=== PATIENT | female | born 1995 | race Caucasian/White ===

== ENCOUNTER 2018-09-15 17:15 | Emergency (ER) | payer BC, MEDICAID ==
[2018-09-15] MEDS ORDERED: LORazepam 0.5 MG Tab PO ONE (18:28)
--- NOTE | 2018-09-15 18:36 | EDM.PDOCBH ---
ED HPI GENERAL MEDICAL PROBLEM - General Chief Complaint: Behavioral/Psych Stated Complaint: SUICIDAL IDEATIONS Time Seen by Provider: 09/15/18 17:38 Source of Information: Reports: Patient, RN Notes Reviewed History Limitations: Reports: No Limitations - History of Present Illness INITIAL COMMENTS - FREE TEXT/NARRATIVE: Patient is a 22-year-old female who presents to the ED for the evaluation of emotional distress. She notes that she has a history of borderline personality disorder. She states that she can go from 0-100 in no time flat. She does that recently she's been feeling mad, angry, sad, impulsive, and destructive. When she gets like this she can't control herself and will punch calabrese and break things. She states that she can't remember how long she's been this way but she states that she has been this way for a really long time. She notes that she has taken medications since she was around 7 years old for this but is not currently medicated. She used to live in [place] and was seeing a psychiatrist there however she has moved to [place] and is getting set up with [facility] and has an appointment on [address] brown. She notes that she has been going to her therapist and counseling sessions through [facility]. But she states that she feels she needs to be medicated sooner rather than later. She states that she has taken Zoloft, buspirone, and Lamictal safely in the past. She states that today she has increased anxiety. She notes that she does have suicidal thoughts from time to time but does not have a plan for this and attributed these to the variations in her mood. She notes that she does smoke cigarettes and does smoke marijuana from time to time as well. Chest Pain Score (Numeric/FACES): 6 - Related Data Allergies Allergy/AdvReac Type Severity Reaction Status Date / Time Penicillins Allergy Rash Verified 09/15/18 17:32 Home Meds: Home Meds Sertraline [Zoloft] 50 mg PO BEDTIME #10 tab 09/15/18 [Rx] busPIRone HCl [Buspirone HCl] 7.5 mg PO BID #20 tablet 09/15/18 [Rx] Past Medical History Psychiatric History: Reports: Anxiety, Bipolar, Depression, PTSD, Suicide Attempt - Infectious Disease History Infectious Disease History: Reports: Chicken Pox Social & Family History - Family History Family Medical History: Noncontributory - Tobacco Use Smoking Status *Q: Current Every Day Smoker Years of Tobacco use: 4 Packs/Tins Daily: 0.2 Used Tobacco, but Quit: Yes Month/Year Tobacco Last Used: 07/2018 - Caffeine Use Caffeine Use: Reports: Coffee - Recreational Drug Use Recreational Drug Use: Yes Drug Use in Last 12 Months: Yes Recreational Drug Type: Reports: Marijuana/Hashish Recreational Drug Use Frequency: Daily ED ROS GENERAL - Review of Systems Review Of Systems: See Below Constitutional: Reports: No Symptoms HEENT: Reports: No Symptoms Respiratory: Reports: No Symptoms Cardiovascular: Reports: No Symptoms Endocrine: Reports: No Symptoms GI/Abdominal: Reports: No Symptoms : Reports: No Symptoms Musculoskeletal: Reports: No Symptoms Skin: Reports: No Symptoms Neurological: Reports: No Symptoms Psychiatric: Reports: Agitation, Anxiety, Mood Lability, Suicidal Ideation. Denies: Depression, Hallucinations, Homicidal Ideation Hematologic/Lymphatic: Reports: No Symptoms Immunologic: Reports: No Symptoms ED EXAM, BEHAVIORAL HEALTH - Physical Exam Exam: See Below Exam Limited By: No Limitations General Appearance: Alert, WD/WN, No Apparent Distress Eye Exam: Bilateral Eye: EOMI, Normal Inspection, PERRL Ears: Normal External Exam, Normal TMs Nose: Normal Inspection Throat/Mouth: Normal Inspection, Normal Teeth, Normal Oropharynx, No Airway Compromise Head: Atraumatic, Normocephalic Neck: Normal Inspection Respiratory/Chest: No Respiratory Distress, Lungs Clear, Normal Breath Sounds, No Accessory Muscle Use, Chest Non-Tender Cardiovascular: Normal Peripheral Pulses, Regular Rate, Rhythm, No Murmur GI/Abdominal: Normal Bowel Sounds, Soft, Non-Tender, No Distention, No Mass Extremities: Normal Inspection, Normal Capillary Refill Neurological: Alert, Normal Gait, Normal Reflexes, No Motor/Sensory Deficits, Oriented x 3 Psychiatric: Alert, Oriented, Restless, Tearful, Agitated, Flight of Ideas, Suicidal Thoughts. No: Homicidal Thoughts, Phobic, Catholic Delusions, Suicidal Plan, Tangential Thoughts, Auditory Hallucinations, Visual Hallucinations, Grandiose Thoughts, Paranoid Thoughts Skin Exam: Warm, Dry, Intact, Normal color, No rash COURSE, BEHAVIORAL HEALTH COMP - Course Vital Signs: Last Vital Signs Temp Pulse 92 09/15/18 17:28 Resp 20 09/15/18 17:28 BP 112/77 09/15/18 17:28 Pulse Ox 98 09/15/18 17:28 Orders, Labs, Meds: Medications Discontinued Medications Generic Name Dose Route Start Last Admin Trade Name Taylor PRAdriana Reason Stop Dose Admin Buspirone HCl 5 mg 09/15/18 18:40 09/15/18 18:50 Buspar PO 09/15/18 18:41 5 mg ONETIME ONE Administration Lorazepam 0.5 mg 09/15/18 18:28 09/15/18 18:38 Ativan PO 09/15/18 18:29 0.5 mg ONETIME ONE Administration Sertraline HCl 50 mg 09/15/18 18:40 09/15/18 18:50 Zoloft PO 09/15/18 18:41 50 mg ONETIME ONE Administration Discharge vs Psych Eval/Treatment:: 09/15/18 18:42 Patient presents to the ED for the evaluation of emotional feelings. I do not believe she is suicidal at this time, she is needing some medications to stabilize her moods until she can get to her psychiatric appointment with Dr. Brown on September 25, 2018. I have given her 0.5 g Ativan in the ER for initial relief but have sent her home with one tablet Zoloft for tonight and 1 tab of buspirone for tonight as well. I have sent her a prescription for 10 days worth of the Zoloft and buspirone so that she may be able to attend her primary Dr. Brown. Patient is amenable to this plan and wishes to be discharged home. Departure - Departure Time of Disposition: 18:44 Disposition: Home, Self-Care 01 Condition: Fair Clinical Impression: Anxiety, Personality disorder in adult - Discharge Information *PRESCRIPTION DRUG MONITORING PROGRAM REVIEWED*: No *COPY OF PRESCRIPTION DRUG MONITORING REPORT IN PATIENT WOODY: No Prescriptions: busPIRone HCl [Buspirone HCl] 7.5 mg PO BID #20 tablet Sertraline [Zoloft] 50 mg PO BEDTIME #10 tab Instructions: Living With Borderline Personality Disorder Referrals: PCP,Not In Area [Primary Care Provider] - Forms: ED Department Discharge Additional Instructions: You have been evaluated in the ED today for your emotional feelings. You have been given 0.5 mg Ativan at this ED visit, and one tablet Zoloft and 1 tab abuse from to take tonight. You have been prescribed a 10 day supply of Zoloft and a 10 day supply of buspirone so that you may be able to get to your appointment with Dr. Brown on September 25, 2018. These have been electronically prescribed to the [facility] pharmacy located near [facility]. Please continue to attend your [facility] counseling session/group therapy sessions. Please return to the ED if your symptoms should change or worsen.
[2018-09-15] MEDS ORDERED: Sertraline 50 MG Tab PO ONE (18:40)
[2018-09-15] MEDS ORDERED: busPIRone 5 MG Tab PO ONE (18:40)
== END 2018-09-15 18:51 | disposition home or self-care (01) ==
LOC: JD.ED 17:15
DX: F41.9 Anxiety disorder, unspecified (principal); F60.9 Personality disorder, unspecified; F17.210 Nicotine dependence, cigarettes, uncomplicated; Z88.0 Allergy status to penicillin
CPT/HCPCS: 99284; A9270

== ENCOUNTER 2020-12-01 06:35 | Emergency (ER) | payer MEDICAID ==
--- NOTE | 2020-12-01 07:05 | EDM.PDOC ---
ED HPI GENERAL MEDICAL PROBLEM - General Chief Complaint: Abdominal Pain Stated Complaint: ABDOMINAL PAIN/NAUSEA Time Seen by Provider: 12/01/20 07:04 - History of Present Illness INITIAL COMMENTS - FREE TEXT/NARRATIVE: 25-year-old female presents to the emergency room with diarrhea and abdominal pain. This pain started this morning she said 3 or 4 watery loose stools and that she has quite a bit of cramping in her lower abdomen. She is not had any nausea or vomiting. She is not aware of any fevers or chills. When she went to bed last night everything was normal. She denies she has an IUD in place. Shortly after arrival the patient did develop some nausea and vomiting here in the emergency room now she has dry heaves. Abdomen Pain Score (Numeric/FACES): 8 - Related Data Allergies Allergy/AdvReac Type Severity Reaction Status Date / Time Penicillins Allergy Rash Verified 12/01/20 06:46 Home Meds: Home Meds Hyoscyamine Sulfate [Levsin-Sl] 0.125 mg SL Q3H PRN #20 tab.subl 12/01/20 [Rx] Ondansetron [Zofran ODT] 4 mg PO Q6H PRN #10 tab.dis 12/01/20 [Rx] Sertraline [Zoloft] 100 mg PO BEDTIME 12/01/20 [History] Past Medical History - Past Health History Medical/Surgical History: Denies Medical/Surgical History Psychiatric History: Reports: Anxiety, Bipolar, Depression, PTSD, Suicide Attempt - Infectious Disease History Infectious Disease History: Reports: Chicken Pox Social & Family History - Family History Family Medical History: No Pertinent Family History - Tobacco Use Tobacco Use Status *Q: Current Every Day Tobacco User Years of Tobacco use: 7 Packs/Tins Daily: 0.5 - Caffeine Use Caffeine Use: Reports: Coffee, Soda - Recreational Drug Use Recreational Drug Use: Yes Recreational Drug Use Frequency: Socially ED ROS GENERAL - Review of Systems Review Of Systems: See Below Constitutional: Reports: No Symptoms, Weight Gain HEENT: Reports: Vertigo Cardiovascular: Reports: No Symptoms GI/Abdominal: Reports: Abdominal Pain, Diarrhea, Nausea, Vomiting : Reports: No Symptoms Musculoskeletal: Reports: No Symptoms Skin: Reports: No Symptoms Neurological: Reports: No Symptoms ED EXAM, GENERAL - Physical Exam Exam: See Below Exam Limited By: No Limitations General Appearance: Alert, No Apparent Distress Head: Atraumatic, Normocephalic Neck: Normal Inspection, Supple, Non-Tender, Full Range of Motion Respiratory/Chest: No Respiratory Distress, Lungs Clear, Normal Breath Sounds Cardiovascular: Regular Rate, Rhythm, No Edema, No Murmur GI/Abdominal: Normal Bowel Sounds, Soft, Other (Use tenderness lower abdomen no rigidity rebound or guarding) Back Exam: Normal Inspection. No: CVA Tenderness (L), CVA Tenderness (R) Neurological: Alert, Oriented, Normal Cognition Course - Vital Signs Last Recorded V/S: Last Vital Signs Temp 36.4 C 12/01/20 06:44 Pulse 98 12/01/20 06:44 Resp 18 12/01/20 06:44 BP 130/77 12/01/20 06:44 Pulse Ox 98 12/01/20 06:44 - Orders/Labs/Meds Orders: Active Orders 24 hr Category Date Time Status Lactated Ringers [Ringers, Lactated] 1,000 ml Med 12/01/20 08:00 Active IV ASDIRECTED Medication Orders Lactated Ringer's (Ringers, Lactated) 1,000 mls @ 150 mls/hr IV ASDIRECTED TERESA Labs: Laboratory Tests 12/01/20 12/01/20 12/01/20 Range/Units 06:57 06:57 07:55 WBC 17.12 H (3.98-10.04) K/mm3 RBC 4.72 (3.98-5.22) M/mm3 Hgb 14.8 (11.2-15.7) gm/dl Hct 43.0 (34.1-44.9) % MCV 91.1 (79.4-94.8) fl MCH 31.4 (25.6-32.2) pg MCHC 34.4 (32.2-35.5) g/dl RDW Std Deviation 43.8 (36.4-46.3) fL Plt Count 391 H (182-369) K/mm3 MPV 8.1 L (9.4-12.3) fl Neut % (Auto) 77.6 H (34.0-71.1) % Lymph % (Auto) 17.3 L (19.3-51.7) % Baxter % (Auto) 4.1 L (4.7-12.5) % Eos % (Auto) 0.6 L (0.7-5.8) Baso % (Auto) 0.1 (0.1-1.2) % Neut # (Auto) 13.27 H (1.56-6.13) K/mm3 Lymph # (Auto) 2.97 (1.18-3.74) K/mm3 Baxter # (Auto) 0.71 H (0.24-0.36) K/mm3 Eos # (Auto) 0.10 (0.04-0.36) K/mm3 Baso # (Auto) 0.02 (0.01-0.08) K/mm3 Manual Slide Review Normal smear Sodium (136-145) mEq/L Potassium (3.5-5.1) mEq/L Chloride (98-107) mEq/L Carbon Dioxide (21-32) mEq/L Anion Gap (5-15) BUN (7-18) mg/dL Creatinine (0.55-1.02) mg/dL Est Cr Clr Drug Dosing mL/min Estimated GFR (MDRD) (>60) mL/min BUN/Creatinine Ratio (14-18) Glucose (70-99) mg/dL Calcium (8.5-10.1) mg/dL Total Bilirubin (0.2-1.0) mg/dL AST (15-37) U/L ALT (14-59) U/L Alkaline Phosphatase (46-116) U/L Total Protein (6.4-8.2) g/dl Albumin (3.4-5.0) g/dl Globulin gm/dL Albumin/Globulin Ratio (1-2) Urine Color Yellow (Yellow) Urine Appearance Clear (Clear) Urine pH 5.5 (5.0-8.0) Ur Specific [place] 1.025 (1.005-1.030) Urine Protein Negative (Negative) Urine Glucose (UA) Negative (Negative) Urine Ketones Negative (Negative) Urine Occult Blood Negative (Negative) Urine Nitrite Negative (Negative) Urine Bilirubin Negative (Negative) Urine Urobilinogen 0.2 (0.2-1.0) Ur Leukocyte Esterase 1+ H (Negative) Urine RBC 0-5 (0-5) /hpf Urine WBC 5-10 H (0-5) /hpf Ur Squamous Epith Cells 5-10 H (0-5) /hpf Urine Bacteria Few (FEW) /hpf Urine Mucus Moderate H (FEW) /hpf Urine HCG, Qual Negative (NEGATIVE) 12/01/20 Range/Units 07:55 WBC (3.98-10.04) K/mm3 RBC (3.98-5.22) M/mm3 Hgb (11.2-15.7) gm/dl Hct (34.1-44.9) % MCV (79.4-94.8) fl MCH (25.6-32.2) pg MCHC (32.2-35.5) g/dl RDW Std Deviation (36.4-46.3) fL Plt Count (182-369) K/mm3 MPV (9.4-12.3) fl Neut % (Auto) (34.0-71.1) % Lymph % (Auto) (19.3-51.7) % Baxter % (Auto) (4.7-12.5) % Eos % (Auto) (0.7-5.8) Baso % (Auto) (0.1-1.2) % Neut # (Auto) (1.56-6.13) K/mm3 Lymph # (Auto) (1.18-3.74) K/mm3 Baxter # (Auto) (0.24-0.36) K/mm3 Eos # (Auto) (0.04-0.36) K/mm3 Baso # (Auto) (0.01-0.08) K/mm3 Manual Slide Review Sodium 144 (136-145) mEq/L Potassium 3.6 (3.5-5.1) mEq/L Chloride 107 (98-107) mEq/L Carbon Dioxide 23 (21-32) mEq/L Anion Gap 17.6 H (5-15) BUN 8 (7-18) mg/dL Creatinine 0.8 (0.55-1.02) mg/dL Est Cr Clr Drug Dosing 96.73 mL/min Estimated GFR (MDRD) > 60 (>60) mL/min BUN/Creatinine Ratio 10.0 L (14-18) Glucose 116 H (70-99) mg/dL Calcium 8.9 (8.5-10.1) mg/dL Total Bilirubin 0.3 (0.2-1.0) mg/dL AST 15 (15-37) U/L ALT 36 (14-59) U/L Alkaline Phosphatase 65 (46-116) U/L Total Protein 7.4 (6.4-8.2) g/dl Albumin 4.0 (3.4-5.0) g/dl Globulin 3.4 gm/dL Albumin/Globulin Ratio 1.2 (1-2) Urine Color (Yellow) Urine Appearance (Clear) Urine pH (5.0-8.0) Ur Specific [place] (1.005-1.030) Urine Protein (Negative) Urine Glucose (UA) (Negative) Urine Ketones (Negative) Urine Occult Blood (Negative) Urine Nitrite (Negative) Urine Bilirubin (Negative) Urine Urobilinogen (0.2-1.0) Ur Leukocyte Esterase (Negative) Urine RBC (0-5) /hpf Urine WBC (0-5) /hpf Ur Squamous Epith Cells (0-5) /hpf Urine Bacteria (FEW) /hpf Urine Mucus (FEW) /hpf Urine HCG, Qual (NEGATIVE) Meds: Medications Generic Name Dose Route Start Last Admin Trade Name Freq PRN Reason Stop Dose Admin Lactated Ringer's 1,000 mls @ 150 mls/hr 12/01/20 08:00 Ringers, Lactated IV ASDIRECTED TERESA Discontinued Medications Generic Name Dose Route Start Last Admin Trade Name Freq PRN Reason Stop Dose Admin Hydromorphone HCl 0.5 mg 12/01/20 08:25 12/01/20 08:43 Hydromorphone 0.5 Mg/0.5 Ml Syringe IM 12/01/20 08:26 0.5 mg ONETIME ONE Administration Hyoscyamine 0.125 mg 12/01/20 07:26 12/01/20 07:33 Hyoscyamine 0.125 Mg Tab.Sl SL 12/01/20 07:27 0.125 mg ONETIME ONE Administration Ondansetron HCl 4 mg 12/01/20 07:49 12/01/20 08:06 Ondansetron 4 Mg/2 Ml Sdv IVPUSH 12/01/20 07:50 Not Given ONETIME ONE Ondansetron HCl 4 mg 12/01/20 08:07 12/01/20 08:15 Ondansetron 4 Mg Tab.Dis PO 12/01/20 08:08 4 mg ONETIME ONE Administration - Re-Assessments/Exams Free Text/Narrative Re-Assessment/Exam: 12/01/20 07:57 Labs have been ordered now that the patient has developed nausea and vomiting we will give her some Zofran 12/01/20 08:29 We will give her a dose of IM Dilaudid for the discomfort she declined the IV which is unfortunate and still wants to drink water I tried to explain to her the problems with water until you get her nausea under control. 12/01/20 08:35 Labs reviewed white count is 17,000 patient denies any urinary symptoms at this point I did repeat her abdominal exam she is got good bowel sounds she is soft no rigidity rebound or guarding noted diffuse lower abdominal discomfort with palpation. 12/01/20 09:16 She is feeling much better at this time urine has some 1+ leukocyte esterase but looks like a contaminated specimen culture is pending she is not having any UTI symptoms. Will discharge with Zofran and Levsin patient understands in no uncertain terms she is to return within 24 hours if not better and sooner if getting worse. Departure - Departure Time of Disposition: 09:16 Disposition: Home, Self-Care 01 Clinical Impression: Acute gastroenteritis - Discharge Information Referrals: Cecilio Hood MD [Primary Care Provider] - Forms: ED Department Discharge Additional Instructions: Return to the emergency room with any questions problems or worsening symptoms. Return in 24 hours if not improving sooner if getting worse. Clear liquid diet for the next 24 hours then slowly advance as tolerated. You have been discharged on 2 medications the first 1 is Zofran ODT take 1 needle will dissolve under or on top of your tongue every 6 hours as needed for nausea and vomiting. The second is Levsin this will also dissolve under your tongue use it every 3-4 hours as needed for stomach spasm and cramps. Sepsis Event Note (ED) - Evaluation Sepsis Screening Result: No Definite Risk - Focused Exam Vital Signs: Vital Signs Temp Pulse Resp BP Pulse Ox 12/01/20 06:44 36.4 C 98 18 130/77 98 - My Orders Last 24 Hours: My Active Orders 12/01/20 08:00 Lactated Ringers [Ringers, Lactated] 1,000 ml IV ASDIRECTED - Assessment/Plan Last 24 Hours: My Active Orders 12/01/20 08:00 Lactated Ringers [Ringers, Lactated] 1,000 ml IV ASDIRECTED
[2020-12-01] MEDS ORDERED: Hyoscyamine 0.125 MG Tab.SL SL ONE (07:26)
[2020-12-01] MEDS ORDERED: Ondansetron 4 MG/2 ML SDV IVPUSH ONE (07:49)
[2020-12-01] MEDS ORDERED: Lactated Ringers 1,000 ML IV SCH (08:00)
[2020-12-01] MEDS ORDERED: Ondansetron 4 MG Tab.DIS PO ONE (08:07)
[2020-12-01] MEDS ORDERED: HYDROmorphone 0.5 MG/0.5 ML Syringe IM ONE (08:25)
== END 2020-12-01 09:40 | disposition home or self-care (01) ==
LOC: JD.ED 06:35
DX: K52.9 Noninfective gastroenteritis and colitis, unspecified (principal); Z88.0 Allergy status to penicillin; Z72.0 Tobacco use
CPT/HCPCS: 36415; 80053; 81001; 81025; 85025; 96372; 99284; A9270; J1170; 99283